=== PATIENT | male | born 1965 | race African-American/Black ===

== ENCOUNTER 2018-01-11 16:20 | Inpatient (IN) | payer OTHER ==
[~2018-01-11] VITALS: Ht 167.6 cm
[2018-01-11 18:50] LABS: BASOPHIL % 0.4 % (0-2); PLATELET COUNT 227 x10^3mcL (130-400)
[2018-01-11 18:55] LABS: RED CELL DISTRIBUTION WIDTH 18.3 % (11.5-14.5)
[2018-01-11 19:13] LABS: BILIRUBIN TOTAL 0.36 mg/dL (0.20-1.00); CALCIUM 9.2 mg/dL (8.5-10.1); CARBON DIOXIDE 30.1 mmol/L (21-32); POTASSIUM SERUM 3.6 mmol/L (3.5-5.1); T4(THYROXINE) 6.3 ug/dL (4.7-13.3); TOTAL PROTEIN, SERUM 7.3 g/dL (6.4-8.2)
[2018-01-11 19:22] LABS: ALBUMIN 2.7 g/dL (3.4-5.0); CREATININE SERUM 4.5 mg/dL (0.7-1.3)
[2018-01-11 20:22] LABS: rbc morphology (normal/abnorm) ABNORMAL (NORMAL)
[2018-01-11 21:49] LABS: MAGNESIUM 2.2 mg/dL (1.8-2.4); PHOSPHOROUS 4.1 mg/dL (2.5-4.9)
[2018-01-11 21:50] LABS: CHOLESTEROL/HDL RATIO 3.2
[2018-01-12] MEDS ORDERED: LABETALOL HCL (00:13)
[2018-01-12] MEDS ORDERED: OMEPRAZOLE40 M1 (00:14)
[2018-01-12] MEDS ORDERED: HALDOL DECA100 MG/ML (00:14)
[2018-01-12] MEDS ORDERED: [UNRECOGNIZED DRUG - CODE] (00:14)
[2018-01-12] MEDS ORDERED: RENA-VITE1 TAB (00:14)
[2018-01-12 06:00] VITALS: BP 136/76
[2018-01-12 07:54] LABS: BASOPHIL % 0.5 % (0-2); CALCIUM 9.5 mg/dL (8.5-10.1); CARBON DIOXIDE 29.5 mmol/L (21-32); MAGNESIUM 2.3 mg/dL (1.8-2.4); PLATELET COUNT 244 x10^3mcL (130-400); POTASSIUM SERUM 3.9 mmol/L (3.5-5.1)
[2018-01-12 07:56] VITALS: BP 158/69
[2018-01-12 07:57] LABS: RED CELL DISTRIBUTION WIDTH 18.8 % (11.5-14.5)
[2018-01-12 07:58] LABS: CREATININE SERUM 5.4 mg/dL (0.7-1.3)
[2018-01-12 12:36] VITALS: BP 185/89
[2018-01-12 12:40] VITALS: BP 155/89
[2018-01-12 12:49] VITALS: Ht 167.6 cm
[2018-01-12 14:28] LABS: IRON 18 ug/dL (65-170); TOTAL IRON BINDING CAPACITY 136 ug/dL (250-450)
[2018-01-12 17:54] VITALS: BP 141/67
[2018-01-13 06:14] VITALS: BP 179/83
[2018-01-13 10:10] VITALS: BP 177/86
[2018-01-13 12:23] LABS: BASOPHIL % 0.3 % (0-2); PLATELET COUNT 276 x10^3mcL (130-400)
[2018-01-13 12:25] LABS: RED CELL DISTRIBUTION WIDTH 17.9 % (11.5-14.5)
[2018-01-13 12:33] LABS: CALCIUM 9.6 mg/dL (8.5-10.1); POTASSIUM SERUM 4.9 mmol/L (3.5-5.1)
[2018-01-13 12:34] LABS: CREATININE SERUM 7.5 mg/dL (0.7-1.3)
[2018-01-13 12:37] VITALS: BP 173/88
[2018-01-13 17:23] VITALS: BP 169/81
[2018-01-13 17:49] VITALS: BP 149/80
[2018-01-13 21:45] VITALS: BP 175/87
[2018-01-14 05:45] VITALS: BP 172/84; BP 175/87
[2018-01-14 06:35] LABS: BASOPHIL % 0.3 % (0-2); PLATELET COUNT 286 x10^3mcL (130-400)
[2018-01-14 06:47] LABS: CALCIUM 9.6 mg/dL (8.5-10.1); CARBON DIOXIDE 24.9 mmol/L (21-32); PHOSPHOROUS 7.2 mg/dL (2.5-4.9); POTASSIUM SERUM 5.5 mmol/L (3.5-5.1)
[2018-01-14 06:49] LABS: CREATININE SERUM 8.2 mg/dL (0.7-1.3)
[2018-01-14 09:57] VITALS: BP 189/88
[2018-01-14 11:13] LABS: IRON 25 ug/dL (65-170); TOTAL IRON BINDING CAPACITY 135 ug/dL (250-450)
[2018-01-14 13:23] VITALS: BP 163/84
[2018-01-14 14:25] VITALS: BP 147/74
[2018-01-14 18:33] VITALS: BP 177/87
[2018-01-14 21:01] VITALS: BP 174/91
[2018-01-15 05:47] VITALS: BP 180/99
[2018-01-15 06:44] VITALS: BP 179/89
[2018-01-15 10:09] VITALS: BP 145/63
[2018-01-15 14:07] VITALS: BP 140/66
[2018-01-15 15:51] LABS: CALCIUM 9.9 mg/dL (8.5-10.1); POTASSIUM SERUM 4.6 mmol/L (3.5-5.1)
[2018-01-15 15:55] LABS: CREATININE SERUM 6.5 mg/dL (0.7-1.3)
[2018-01-15 16:08] LABS: BASOPHIL % 0.3 % (0-2); PLATELET COUNT 236 x10^3mcL (130-400); RED CELL DISTRIBUTION WIDTH 18.2 % (11.5-14.5)
[2018-01-15 17:22] VITALS: BP 146/70
[2018-01-15 21:10] VITALS: BP 157/85
[2018-01-16 05:47] VITALS: BP 160/86
[2018-01-16 07:21] LABS: BASOPHIL % 0.7 % (0-2); PLATELET COUNT 256 x10^3mcL (130-400)
[2018-01-16 07:39] LABS: RED CELL DISTRIBUTION WIDTH 18.1 % (11.5-14.5)
[2018-01-16 07:52] LABS: CALCIUM 10.3 mg/dL (8.5-10.1); CARBON DIOXIDE 26.7 mmol/L (21-32)
[2018-01-16 07:56] LABS: CREATININE SERUM 7.3 mg/dL (0.7-1.3)
[2018-01-16 08:36] VITALS: BP 148/88
[2018-01-16 13:43] VITALS: BP 142/90
[2018-01-16 17:56] VITALS: BP 144/88
[2018-01-16 20:00] VITALS: BP 146/86
[2018-01-17 05:34] VITALS: BP 192/95
[2018-01-17 06:30] VITALS: BP 168/82
[2018-01-17 08:04] VITALS: BP 180/85
[2018-01-17] MEDS ORDERED: FLA500 PO (09:32)
[2018-01-17] MEDS ORDERED: PRO4I SC (09:33)
[2018-01-17] MEDS ORDERED: IPRATROPIUM BROM3 M2 HHN (09:33)
[2018-01-17] MEDS ORDERED: REN800 PO (09:34)
[2018-01-17] MEDS ORDERED: HYDROCHLOROTH12.5 M3 PO (09:34)
[2018-01-17 10:48] LABS: BASOPHIL % 0.6 % (0-2); PLATELET COUNT 229 x10^3mcL (130-400)
[2018-01-17 10:54] LABS: CALCIUM 9.6 mg/dL (8.5-10.1); CARBON DIOXIDE 29.7 mmol/L (21-32); POTASSIUM SERUM 4.2 mmol/L (3.5-5.1)
[2018-01-17 10:55] LABS: RED CELL DISTRIBUTION WIDTH 18.4 % (11.5-14.5)
[2018-01-17 10:57] LABS: CREATININE SERUM 4.8 mg/dL (0.7-1.3)
[2018-01-17 11:01] LABS: rbc morphology (normal/abnorm) ABNORMAL (NORMAL)
[2018-01-17 12:32] VITALS: BP 151/79
[2018-01-17 16:46] LABS: BASOPHIL % 0.3 % (0-2); PLATELET COUNT 222 x10^3mcL (130-400)
[2018-01-17 16:57] VITALS: BP 147/80
[2018-01-17 17:05] LABS: RED CELL DISTRIBUTION WIDTH 17.5 % (11.5-14.5)
== END 2018-01-17 18:42 | DRG 248 ==
LOC: ED 16:20 → DU 19:58
PROVIDERS: Emergency Medicine; Family Medicine; Internal Medicine Gastroenterology
PROC: 5A1D70Z Performance of Urinary Filtration, Intermittent, Less than 6 Hours Per Day (ICD-10-PCS; 2018-01-14)
PROC: 5A1D70Z Performance of Urinary Filtration, Intermittent, Less than 6 Hours Per Day (ICD-10-PCS; 2018-01-16)
PROC: 30233N1 Transfusion of Nonautologous Red Blood Cells into Peripheral Vein, Percutaneous Approach (ICD-10-PCS; principal; 2018-01-17)
PROC: 5A1935Z Respiratory Ventilation, Less than 24 Consecutive Hours (ICD-10-PCS; 2018-01-17)
PROC: 5A1D70Z Performance of Urinary Filtration, Intermittent, Less than 6 Hours Per Day (ICD-10-PCS; 2018-01-17)
DX: A04.72 Enterocolitis due to Clostridium difficile, not specified as recurrent (principal); N17.0 Acute kidney failure with tubular necrosis; E43 Unspecified severe protein-calorie malnutrition; J96.10 Chronic respiratory failure, unspecified whether with hypoxia or hypercapnia; E11.22 Type 2 diabetes mellitus with diabetic chronic kidney disease; Z93.0 Tracheostomy status; E11.52 Type 2 diabetes mellitus with diabetic peripheral angiopathy with gangrene; D62 Acute posthemorrhagic anemia; K92.2 Gastrointestinal hemorrhage, unspecified; D63.1 Anemia in chronic kidney disease; E83.39 Other disorders of phosphorus metabolism; E78.00 Pure hypercholesterolemia, unspecified; I12.0 Hypertensive chronic kidney disease with stage 5 chronic kidney disease or end stage renal disease; I48.91 Unspecified atrial fibrillation; Z53.29 Procedure and treatment not carried out because of patient's decision for other reasons; E11.65 Type 2 diabetes mellitus with hyperglycemia; F95.2 Tourette's disorder; N18.6 End stage renal disease; E02 Subclinical iodine-deficiency hypothyroidism; Z93.1 Gastrostomy status; Z99.2 Dependence on renal dialysis; Z68.24 Body mass index [BMI] 24.0-24.9, adult; Z86.73 Personal history of transient ischemic attack (TIA), and cerebral infarction without residual deficits; Z79.899 Other long term (current) drug therapy; Z98.41 Cataract extraction status, right eye; Z98.42 Cataract extraction status, left eye
CPT/HCPCS: 82962; 83880; 87046; 87046-59; J0885-EC; J1644; J3490; J7030; J7040; J7620; P9016; Q0092

== ENCOUNTER 2018-01-26 15:53 | Emergency (ER) | payer OTHER ==
[~2018-01-26] VITALS: Ht 162.6 cm; Wt 81.6 kg
[~2018-01-26 15:53] MED LIST: FLA500 PO; HALDOL DECA100 MG/ML; HYDROCHLOROTH12.5 M3 PO; IPRATROPIUM BROM3 M2 HHN; LABETALOL HCL; OMEPRAZOLE40 M1; PRO4I SC; REN800 PO; RENA-VITE1 TAB; [UNRECOGNIZED DRUG - CODE]
[2018-01-26 16:02] VITALS: Ht 162.6 cm; Wt 81.6 kg
[2018-01-26 17:01] LABS: BILIRUBIN TOTAL 0.41 mg/dL (0.20-1.00); CALCIUM 9.8 mg/dL (8.5-10.1); CARBON DIOXIDE 28.8 mmol/L (21-32); POTASSIUM SERUM 4.3 mmol/L (3.5-5.1); TOTAL PROTEIN, SERUM 8.2 g/dL (6.4-8.2)
[2018-01-26 17:03] LABS: ALBUMIN 3.1 g/dL (3.4-5.0)
[2018-01-26 17:04] LABS: CREATININE SERUM 6.8 mg/dL (0.7-1.3)
[2018-01-26 17:26] LABS: BASOPHIL % 0.7 % (0-2); PLATELET COUNT 262 x10^3mcL (130-400)
[2018-01-26 20:15] VITALS: BP 201/78
== END 2018-01-26 20:15 | disposition home or self-care (01) ==
LOC: ED 15:53
PROVIDERS: Emergency Medicine
DX: Z00.01 Encounter for general adult medical examination with abnormal findings (principal); I12.0 Hypertensive chronic kidney disease with stage 5 chronic kidney disease or end stage renal disease; Z99.2 Dependence on renal dialysis; D64.9 Anemia, unspecified; E78.00 Pure hypercholesterolemia, unspecified
CPT/HCPCS: Q0092